=== PATIENT | female | born 1990 | race Two or more races ===

== ENCOUNTER 2025-09-22 12:34 | Observation (INO) ==
[2025-09-22] MEDS ORDERED: ONDANSETRON INJ 2 MG/ML 2 ML VIAL IV STA (12:42)
[2025-09-22] MEDS ORDERED: SODIUM CHLORIDE 0.9% 100 ML IV PRN ×2 (12:54→13:40)
[2025-09-22] MEDS: PIPERACILLIN/TAZOBACTAM 4.5 GM/100 ML BAG IV ONE (13:06)
[2025-09-22] MEDS: SODIUM CHLORIDE 0.9% 2,000 ML IV SCH (13:06)
[2025-09-22 13:11] LABS: Hematocrit (blood only) 23.4 % (37.0-47.0); Hemoglobin 7.8 g/dL (12.0-16.0); Immature Granulocytes # (auto) 0.42 K/uL (0.01-0.20); Immature Granulocytes % (auto) 2.0 %; Mean Corpuscular Hemoglobin 30.1 pg (25.0-34.0); Mean Corpuscular Volume 90.3 fL (80.0-100.0); Platelet Count 335 K/uL (130-400); RDW Standard Deviation 42.4 fL (36.4-46.3); Red Blood Count 2.59 M/uL (4.20-5.40); White Blood Count 20.49 K/ul (4.8-10.8)
--- NOTE | 2025-09-22 13:13 | Emergency Department Note ---
Impression & Plan Ruptured ectopic , Symptomatic anemia, Elevated lactic acid level, Hemoperitoneum ED Provider Note NAME: THUAN MCCULLOUGH AGE: 35 SEX: F : 1990 ARRIVES VIA: Ambulance INFORMANT: Patient, ED PROVIDER(S): Emre Terrell MD CHIEF COMPLAINT: Hypotension, vomiting, abdominal pain MEDICAL DECISION MAKING: Patient presents with the above. Little prior care known but the patient did take mifepristone earlier today and subsequently developed significant abdominal pain and dizziness. Given these concerns 2 large-bore IVs were placed IV fluids initiated and [id number] was also ordered. I was concerned about the possibility of a ruptured ectopic . I did call WASHROOM ATTENDANT Dr. Granda who stated that she would be down to see the patient. I will did speak with ultrasound to have a portable taken inside the room as the patient was not stable for transport outside of the department. Patient's [id number] hemoglobin was 7. I did request an order 2 units of O- to be given emergently as the patient was tachycardic and hypotensive. I did perform a bedside ultrasound which showed concern for free fluid within the abdomen. I did show this to Dr. Granda who was at the bedside. Formal ultrasound confirmed ruptured ectopic . Patient did show clinical improvement after being administered via the rapid infuser 2 units of PRBCs. Patient's blood work shows a white count of 20. Patient was ordered sepsis protocols and ordered IV cefepime. Blood cultures Pro-Regan and lactate ordered. Hemoglobin is 7.8. Patient's kidney function unremarkable. Bicarb of 16 with a gap of 14. Initial lactate of 10. Calcium low at 7.3. Procalcitonin is not elevated. Patient was subsequently taken to the OR with Dr. Granda. Critical Care: I have personally spent 40 minutes of critical care time in direct management of this patient. This includes bedside care, interpretation of diagnostic studies, and testing, discussion with consultants, patient, and family members, and other require inpatient management activities. This 40 minutes is in excess of all separately billable procedures. Procedures: Limited Point of Care FAST Ultrasound performed by me: Indication: Hypotension, tachycardia, concern for ruptured ectopic Findings: Limited abdominal ultrasound revealed free fluid within Morrisons pouch, splenorenal space, and the pouch of Charlie. Discussion w/ other healthcare providers: Dr. Granda WASHROOM ATTENDANT [facility] Prior /Outside records reviewed: None Differential diagnosis: Etiologies such as dysfunctional uterine bleeding, uterine fibroid, threatened , miscarriage, ectopic , GI bleeding, hyperemesis gravidarum, endometrial polyps, coagulopathy, trauma, infection, as well as others were entertained. Diagnostics, as interpreted by me: ECG: Sinus tachycardia, rate of 122, normal QRS, normal axis no ST elevations. Cardiac monitoring: An order was placed for continuous cardiac monitoring. The monitor shows a rate of 125 with tachycardic and regular rhythm. Patient was placed on pulse oximetry Medical decision rules: None Imaging studies: I informally interpreted the patient's ultrasound to show concern for free fluid in the abdomen with formal report to follow. HPI: Patient presents from home due to concern for feeling unwell with associated dizziness and vomiting. Reportedly did take medications after telehealth visit for medication induced approximately 7 weeks. No prior care and the patient has not had a prior documented IUP. Patient reportedly was feeling unwell in the mid morning was seen by her boyfriend who was concerned given how ill she looked to call 911. EMS arrived and the patient was reportedly hypotensive with systolics in the 50s. They did give 2 epis prior to arrival BSG was 250 and the patient was given Zofran. Patient denies any blood thinner use. She denies any vomiting and denies any current vaginal bleeding. PAST MEDICAL HISTORY: See Below PAST SURGICAL HISTORY: See Below SOCIAL HISTORY: See Below HOME MEDICATIONS: See Below ALLERGIES: See Below VITALS: See Below PHYSICAL EXAMINATION: GENERAL: Severe distress, ill in appearance. EYE EXAM: Normal conjunctiva. PERRL, no anisocoria and EOM's grossly intact w/o pain. OROPHARYNX: Dry mucus membranes, grossly normal dentition. NECK: Trachea midline, no stridor. LUNGS: Clear to auscultation. Normal chest wall mechanics. HEART: Tachycardic and regular, no MRG. ABDOMEN: Diffuse abdominal pain BACK: No CVA TTP. SKIN: No rashes and no bruising. UPPER EXTREMITIES: Upper extremities are grossly normal. LOWER EXTREMITIES: Grossly normal, no edema. NEURO EXAM: Opens eyes to voice follows basic commands. Moves all 4 extremities. Past Med/Surg History Problem List (Updated 09/22/25 @ 16:11 by Emre Terrell MD) Hemoperitoneum (Acute) Elevated lactic acid level (Acute) Symptomatic anemia (Acute) Ruptured ectopic (Acute) Ectopic Medical History No known health problems Surgical History No history of previous surgery Social History Smoking Status: Never smoker Preferred Language: Nepali Feels Safe at Home: Yes Allergies Allergies Allergy/AdvReac Type Severity Reaction Status Date / Time No Known Drug Allergies Allergy Unknown Verified 09/22/25 13:33 Home Meds Home Medications Medication Instructions Recorded Confirmed No Known Home Medications 09/22/25 09/22/25 Results & Data (ED) Vital Signs Vital Signs - 24 hr 09/22/25 12:28 09/22/25 12:37 09/22/25 12:37 Temperature 36.6 C 35.1 C L Temperature Source Oral Rectal Pulse Rate 120 H Pulse Rate [Apical] 124 H Pulse Rate [Right Finger] Pulse Rhythm [Apical] Pulse Rhythm [Right Finger] Pulse Strength [Right Finger] Respiratory Rate 18 23 Respiratory Effort / Characteristics Respiratory Depth Respiratory Pattern Blood Pressure 96/85 L Blood Pressure [Left Arm] Blood Pressure Mean 88 Blood Pressure Mean [Left Arm] Blood Pressure Position [Left Arm] Pulse Oximetry 100 94 Oxygen Delivery Method Room Air Oxygen Flow Rate Sepsis Recent Fever Within 48 Hours No Sepsis New/Unexplained Change in Mental Status N/A Sepsis Action Taken by Nursing Physician Notified 09/22/25 12:42 09/22/25 12:53 09/22/25 13:09 Temperature 35.1 C L Temperature Source Rectal Pulse Rate 118 H 120 H Pulse Rate [Apical] Pulse Rate [Right Finger] Pulse Rhythm [Apical] Pulse Rhythm [Right Finger] Pulse Strength [Right Finger] Respiratory Rate 16 Respiratory Effort / Characteristics Respiratory Depth Respiratory Pattern Blood Pressure 142/48 H Blood Pressure [Left Arm] Blood Pressure Mean 79 Blood Pressure Mean [Left Arm] Blood Pressure Position [Left Arm] Pulse Oximetry 98 100 Oxygen Delivery Method Oxygen Flow Rate Sepsis Recent Fever Within 48 Hours Sepsis New/Unexplained Change in Mental Status Sepsis Action Taken by Nursing 09/22/25 13:14 09/22/25 13:27 09/22/25 14:03 Temperature 36.2 C L Temperature Source Axillary Pulse Rate 124 H Pulse Rate [Apical] Pulse Rate [Right Finger] 130 H Pulse Rhythm [Apical] Pulse Rhythm [Right Finger] Regular Pulse Strength [Right Finger] Normal Respiratory Rate 41 H 40 H 18 Respiratory Effort / Characteristics SOB on Exertion Respiratory Depth Shallow Respiratory Pattern Tachypnea Blood Pressure 106/59 L Blood Pressure [Left Arm] 115/70 Blood Pressure Mean 74 Blood Pressure Mean [Left Arm] 85 Blood Pressure Position [Left Arm] Lying Pulse Oximetry 100 100 Oxygen Delivery Method Room Air Oxygen Flow Rate Sepsis Recent Fever Within 48 Hours Sepsis New/Unexplained Change in Mental Status Sepsis Action Taken by Nursing 09/22/25 15:05 09/22/25 15:15 09/22/25 15:25 Temperature 36.1 C L Temperature Source Temporal Artery Scan Pulse Rate Pulse Rate [Apical] 87 91 H 89 Pulse Rate [Right Finger] Pulse Rhythm [Apical] Regular Regular Regular Pulse Rhythm [Right Finger] Pulse Strength [Right Finger] Respiratory Rate 15 15 18 Respiratory Effort / Characteristics Non-Labored Spontaneous Non-Labored Spontaneous Non-Labored Spontaneous Respiratory Depth Normal Normal Normal Respiratory Pattern Regular Regular Regular Blood Pressure Blood Pressure [Left Arm] 121/78 125/90 134/89 Blood Pressure Mean Blood Pressure Mean [Left Arm] 92 101 104 Blood Pressure Position [Left Arm] Semi-fowlers Semi-fowlers Semi-fowlers Pulse Oximetry 100 100 100 Oxygen Delivery Method Oxymask Oxymask Oxymask Oxygen Flow Rate 5 5 5 Sepsis Recent Fever Within 48 Hours Sepsis New/Unexplained Change in Mental Status Sepsis Action Taken by Nursing 09/22/25 15:35 09/22/25 15:45 09/22/25 15:55 Temperature 36.5 C Temperature Source Temporal Artery Scan Pulse Rate Pulse Rate [Apical] 92 H 88 87 Pulse Rate [Right Finger] Pulse Rhythm [Apical] Regular Regular Regular Pulse Rhythm [Right Finger] Pulse Strength [Right Finger] Respiratory Rate 17 16 18 Respiratory Effort / Characteristics Non-Labored Spontaneous Non-Labored Spontaneous Non-Labored Spontaneous Respiratory Depth Normal Normal Normal Respiratory Pattern Regular Regular Regular Blood Pressure Blood Pressure [Left Arm] 127/95 121/74 114/93 Blood Pressure Mean Blood Pressure Mean [Left Arm] 105 89 100 Blood Pressure Position [Left Arm] Semi-fowlers Semi-fowlers Semi-fowlers Pulse Oximetry 100 100 100 Oxygen Delivery Method Oxymask Oxymask Room Air Oxygen Flow Rate 5 5 Sepsis Recent Fever Within 48 Hours Sepsis New/Unexplained Change in Mental Status Sepsis Action Taken by Care Home Medications Current Medication List: was personally reviewed by me Laboratory Data Attestation: I reviewed the patient's lab results. 09/22/25 12:42 09/22/25 12:42 Lab Results 09/22/25 09/22/25 09/22/25 Range/Units 12:42 12:45 13:01 WBC 20.49 H (4.8-10.8) K/ul RBC 2.59 L (4.20-5.40) M/uL Hgb 7.8 L (12.0-16.0) g/dL POC Hgb 7.5 L (12.0-16.0) g/dl Hct 23.4 L (37.0-47.0) % POC Hct 22 L (37-47) % MCV 90.3 (80.0-100.0) fL MCH 30.1 (25.0-34.0) pg MCHC 33.3 (32.0-36.0) g/dL RDW Std Deviation 42.4 (36.4-46.3) fL RDW Coeff of [place] 12.9 (11.5-14.5) % Plt Count 335 (130-400) K/uL MPV 9.5 (9.4-12.4) fL Immature Gran % (Auto) 2.0 % Neut % (Auto) 71.2 % Lymph % (Auto) 21.2 % [place] % (Auto) 5.1 % Eos % (Auto) 0.3 % Baso % (Auto) 0.2 % Neut # (Auto) 14.57 H (1.40-6.50) K/uL Lymph # (Auto) 4.34 H (1.20-3.40) K/uL [place] # (Auto) 1.04 H (0.11-0.59) K/uL Eos # (Auto) 0.07 (0.00-0.50) K/uL Baso # (Auto) 0.05 (0.00-0.20) K/uL Immature Gran # (Auto) 0.42 H (0.01-0.20) K/uL Echinocytes 1+ POC Sodium 139 (135-144) mmol/L Sodium 139 (136-145) mmol/L POC Potassium 3.5 (3.3-5.0) mmol/L Potassium 3.4 L (3.5-5.1) mmol/L POC Chloride 106 (101-112) mmol/L Chloride 109 H (98-107) mmol/L Carbon Dioxide 16 L (21-32) mmol/L POC Total CO2 15 L (24-31) mmol/L Anion Gap 14 H (3-11) POC Anion Gap 22.0 (16-25) mmol/L POC BUN 10 (7-18) mg/dl BUN 11 (6-23) mg/dl Creatinine 0.91 (0.6-1.2) mg/dl POC Creatinine 0.9 (0.6-1.3) mg/dl Est Cr Clr Drug Dosing 68.3 ml/min eGFR 83.33 BUN/Creatinine Ratio 12.1 (10-20) Glucose 275 H (70-99(Fasting)) mg/dl POC Glucose (other) 251 H (70-99) mg/dl Lactate 10.1 H* (0.4-2.0) mmol/L Calcium 7.3 L (8.6-10.3) mg/dl POC Ioniz Calcium Kaye 1.02 L (1.12-1.32) mmol/l Total Bilirubin 0.2 (0.2-1.0) mg/dl AST 10 L (13-39) U/L ALT 8 (7-52) U/L Alkaline Phosphatase 30 L (34-104) U/L Troponin I High Sens 5.7 (0-14) pg/ml Total Protein 4.8 L (6.0-8.3) gm/dl Albumin 2.8 L (3.4-5.0) gm/dl Globulin 2.0 L (2.5-4.0) gm/dl Albumin/Globulin Ratio 1.4 (0.9-2) Procalcitonin < 0.02 (0-0.5) ng/ml Blood Type A Positive Blood Type Recheck Antibody Screen NEGATIVE Crossmatch See Detail 09/22/25 09/22/25 Range/Units 13:02 15:30 WBC (4.8-10.8) K/ul RBC (4.20-5.40) M/uL Hgb Cancelled (12.0-16.0) g/dL POC Hgb (12.0-16.0) g/dl Hct Cancelled (37.0-47.0) % POC Hct (37-47) % MCV (80.0-100.0) fL MCH (25.0-34.0) pg MCHC (32.0-36.0) g/dL RDW Std Deviation (36.4-46.3) fL RDW Coeff of [place] (11.5-14.5) % Plt Count (130-400) K/uL MPV (9.4-12.4) fL Immature Gran % (Auto) % Neut % (Auto) % Lymph % (Auto) % [place] % (Auto) % Eos % (Auto) % Baso % (Auto) % Neut # (Auto) (1.40-6.50) K/uL Lymph # (Auto) (1.20-3.40) K/uL [place] # (Auto) (0.11-0.59) K/uL Eos # (Auto) (0.00-0.50) K/uL Baso # (Auto) (0.00-0.20) K/uL Immature Gran # (Auto) (0.01-0.20) K/uL Echinocytes POC Sodium (135-144) mmol/L Sodium (136-145) mmol/L POC Potassium (3.3-5.0) mmol/L Potassium (3.5-5.1) mmol/L POC Chloride (101-112) mmol/L Chloride (98-107) mmol/L Carbon Dioxide (21-32) mmol/L POC Total CO2 (24-31) mmol/L Anion Gap (3-11) POC Anion Gap (16-25) mmol/L POC BUN (7-18) mg/dl BUN (6-23) mg/dl Creatinine (0.6-1.2) mg/dl POC Creatinine (0.6-1.3) mg/dl Est Cr Clr Drug Dosing ml/min eGFR BUN/Creatinine Ratio (10-20) Glucose (70-99(Fasting)) mg/dl POC Glucose (other) (70-99) mg/dl Lactate (0.4-2.0) mmol/L Calcium (8.6-10.3) mg/dl POC Ioniz Calcium Kaye (1.12-1.32) mmol/l Total Bilirubin (0.2-1.0) mg/dl AST (13-39) U/L ALT (7-52) U/L Alkaline Phosphatase (34-104) U/L Troponin I High Sens (0-14) pg/ml Total Protein (6.0-8.3) gm/dl Albumin (3.4-5.0) gm/dl Globulin (2.5-4.0) gm/dl Albumin/Globulin Ratio (0.9-2) Procalcitonin (0-0.5) ng/ml Blood Type Blood Type Recheck A Positive Antibody Screen Crossmatch Administered Medications Discontinued Medications Bupivacaine HCl (Bupivacaine 0.5 % 5 Mg/1 Ml Mpf 30ml Vial) Confirm Administered Dose 30 ml .ROUTE .STK-MED ONE Stop: 09/22/25 13:40 Last Admin: 09/22/25 14:47 Dose: 24 ml Documented By: [id number] Sodium Chloride (Nss) 2,000 mls @ 999 mls/hr IV .Q2H1M ANGELY Stop: 09/22/25 14:45 Last Admin: 09/22/25 13:06 Dose: 999 mls/hr Documented By: MATT Piperacillin Sod/Tazobactam Sod (Zosyn) 4.5 gm in 100 mls @ 200 mls/hr IV NOW ONE; Protocol Stop: 09/22/25 13:23 Last Admin: 09/22/25 13:06 Dose: 200 mls/hr Documented By: MATT Imaging Data Radiologist's Impression: Pelvic/Transvag US 09/22/25 12:42 US ectopic HISTORY: 35 years-old Female hypotensive, tachy acute pelvic pain with possible ectopic gestation COMPARISON: None TECHNIQUE: Multiple real-time images of the deep pelvic structures were obtained transabdominally assessing grayscale appearance, color and spectral flow FINDINGS: Anteflexed uterus measures 90.8 x 3.5 x 2.9 cm. Endometrium is 1.2 cm in thickness. Possible hemorrhagic debris within the endometrial cavity. Nonvisualization of the right ovary. The left ovary appears to measure approximately 4.8 x 1.8 x 3.8 cm. There is a complex structure within the left adnexum overall measuring 8.0 x 5.3 x 6.3 cm with 2 central cystic foci conglomerate measuring 3.2 x 1.4 x 3.4 cm, possibly representing gestational sac versus gestational sacs. Complex fluid within the pelvis extends into the upper abdomen. Blood flow noted within the left adnexum. Normal arterial and venous waveforms in the left ovary are difficult to evaluate secondary to the left adnexal lesion. IMPRESSION: 1. Probable ectopic gestation within the left adnexum with adjacent complex fluid within the abdomen and pelvis suggestive of hemoperitoneum. 2. No intrauterine gestation identified. 3. Possible blood products within the endometrial cavity. Findings were discussed with Dr. Emre Terrell at time of dictation. ACT 112: Positive. There are findings on this exam that require communication between the performing entity and the patient following Patient Test Result Information Act ([place] Act 112) guidelines. The above report was generated using voice recognition software. It may contain grammatical, syntax or spelling errors. Electronically signed by: Felipe Birmingham M.D. 09/22/2025 1:46 PM Discharge Plan Visit Data Chief Complaint: Hypotension Stated Complaint: AMS, HYPOTENSION, VOMITING ED Provider: Emre Terrell Discharge Problem: Ruptured ectopic , Symptomatic anemia, Elevated lactic acid level, Hemoperitoneum Patient Disposition: Admitted As Inpatient Condition: Critical Discharge Instructions Interventions: ED Discharge Assessment Last Done: 09/22/25 14:03
[2025-09-22] MEDS ORDERED: DEXAMETHASONE SOD INJ 4 MG/ML VIAL ONE (13:20)
[2025-09-22] MEDS ORDERED: ONDANSETRON INJ 2 MG/ML 2 ML VIAL ONE (13:20)
[2025-09-22] MEDS ORDERED: LIDOCAINE 2% 2 ML VIAL/AMP(20MG/ML) INFIL ONE (13:20)
[2025-09-22] MEDS ORDERED: PROPOFOL IV EMULSION 10 MG/ML 20 ML VIAL IV ONE (13:20)
[2025-09-22] MEDS ORDERED: MIDAZOLAM HCL 1 MG/ML 2ML VIAL ONE (13:21)
[2025-09-22] MEDS ORDERED: LARYING-O-JET KIT (LTA) ONE (13:21)
[2025-09-22] MEDS ORDERED: ROCURONIUM BROMIDE 10 MG/ML 5 ML VIAL IV ONE (13:21)
[2025-09-22 13:25] LABS: Alanine Aminotransferase 8.0 U/L (7-52); Albumin Globulin Ratio 1.4 (0.9-2); Albumin Level 2.8 gm/dl (3.4-5.0); Alkaline Phosphatase 30.0 U/L (34-104); Anion Gap 14.0 (3-11); Bilirubin,Total 0.2 mg/dl (0.2-1.0); Blood Urea Nitrogen 11.0 mg/dl (6-23); Calcium 7.3 mg/dl (8.6-10.3); Carbon Dioxide 16.0 mmol/L (21-32); Chloride 109.0 mmol/L (98-107); Creatinine Clr Calc Pharmacy 68.3 ml/min; Globulin 2.0 gm/dl (2.5-4.0); Glucose 275.0 mg/dl (70-99(Fasting)); Potassium 3.4 mmol/L (3.5-5.1); Sodium 139.0 mmol/L (136-145); Total Protein 4.8 gm/dl (6.0-8.3)
--- NOTE | 2025-09-22 13:28 | OB/GYN Consultation ---
Date of Consultation September 22, 2025 Assessment & Plan (1) Ectopic : Plan Pt is a 35yo female who presents with concern for ruptured ectopic . S/P 2 units pRBCs Proceed to OR for dx laparoscopy, removal ectopic , possible unilateral salpingoophorectomy, possible laparotomy Consents signed History of Present Illness History of Present Illness Patient is a 35yo female who arrived to ER by EMS. Accompanied by boyfriend who helped provide history below. Took mifepristone from telehealth visit -took this morning, supposed to be around 7 weeks . Shortly after had symptoms of dizziness. Found to be hypotensive in ER. No vaginal bleeding noted. Did not have work up or ultrasound prior to taking mifepristone. Denies surgical history. ER evaluation showing fluid and blood in abdomen, with gestational sac seen outside of uterus; findings concerning for ruptured ectopic . Allergies Allergy/AdvReac Type Severity Reaction Status Date / Time No Known Drug Allergies Allergy Unknown Verified 09/22/25 13:33 Patient History Social History Smoking Status: Never smoker Preferred Language: Hungarian Feels Safe at Home: Yes Review of Systems Review of Systems: All systems reviewed & are unremarkable except as noted in HPI & below Physical Exam Constitutional: + acute distress and + ill appearing Respiratory: + labored breathing Cardiovascular: Rate/Rhythm: + tachycardic Gastrointestinal (Abdomen): Inspection/Auscultation: + abdomen distended blood in abdomen on FAST exam by ER doctor Psychiatric: Orientation: oriented to person and oriented to place Eye Contact: + poor eye contact Genitourinary: normal external appearance Results & Data Vital Signs (Past 12 Hours) Vital Signs Temp Pulse Pulse Resp BP Pulse Ox O2 Del Method 09/22/25 13:14 124 H 41 H 106/59 L 100 09/22/25 13:09 35.1 C L 120 H 16 142/48 H 100 09/22/25 12:53 118 H 09/22/25 12:42 98 09/22/25 12:37 35.1 C L 124 H 23 94 09/22/25 12:37 Room Air 09/22/25 12:28 36.6 C 120 H 18 96/85 L 100 PG Care Time/CCT Total # of Minutes Spent Total Time Spent with Patient: Total time spent is greater than 50% in coordination of care (as documented) at patient's floor/unit and/or counseling patient: Coding Level of Care Code 04877 OFFICE CONSULT LVL Diagnoses Ectopic O00.90
[2025-09-22] MEDS ORDERED: SUCCINYLCHOLINE CHLORIDE 20 MG/ML 10 ML VIAL IV ONE (13:29)
[2025-09-22] MEDS ORDERED: ALBUMIN HUMAN 5% 12.5 GM/250 ML VIAL IV ONE (13:33)
[2025-09-22] MEDS ORDERED: PROMETHAZINE HCL 6.25 MG in SODIUM CHLORIDE 0.9% 50 ML IV PRN (13:43)
[2025-09-22] MEDS ORDERED: ONDANSETRON INJ 2 MG/ML 2 ML VIAL IV PRN ×2 (13:43→14:56)
[2025-09-22] MEDS ORDERED: ATROPINE SULFATE 0.1 MG/ML 10ML SYR IV PRN (13:43)
--- NOTE | 2025-09-22 13:43 | Anesthesiology Consultation ---
Date of Service September 22, 2025 Assessment & Plan Chart Review Chart Review: Acceptable Risk for Surgery and Patient NOT seen in Pre Admission Testing Consults Requested none ASA [id number] Proposed Anesthesia Anesthesia Type: General Risk / Benefits Reviewed With: PT / POA / Parent / Guardian, Accepts Plan and Informed Consent Obtained History Surgery Operation Date: 09/22/25 10:25 Proposed Procedures p Diagnostic Laparoscopy, Removal of Ectopic , Possible Unilateral Salpingectomy - Paola Granda MD Height/Weight Height: 5 ft 3 in Weight: 51.1 kg Allergies Allergy/AdvReac Type Severity Reaction Status Date / Time No Known Drug Allergies Allergy Unknown Verified 09/22/25 13:33 Medications Home Medications Medication Instructions Recorded Confirmed Last Taken No Known Home Medications 09/22/25 09/22/25 Unknown Active Medications Generic Name Dose Route Start Last Admin Trade Name Freq PRN Reason Stop Dose Admin Sodium Chloride 2,000 mls @ 999 mls/hr 09/22/25 12:45 09/22/25 13:06 Nss IV 09/22/25 14:45 999 mls/hr .Q2H1M ANGELY Administration NPO Date Last Intake of Fluids: 09/22/25 Time Last Intake of Fluids: 07:00 Date Last Intake of Solids: 09/22/25 Time Last Intake of Solids: 07:00 Past Medical History Medical History (Updated 09/22/25 @ 13:35 by Amparo Holt RN) No known health problems Exercise / Class Metabolic Activity II 4-5 Yardwork/Stairs/Walk up hill Past Surgical History Surgical History (Updated 09/22/25 @ 13:35 by Amparo Holt RN) No history of previous surgery Past Anesthesia History No Hx of Anesthesia Complications and No Family Hx of Anesthesia Complications History of PONV No Hx of PONV and No Hx of Motion Sickness Social History Smoking Status: Never smoker Physical Exam Vital Signs Last Vital Signs Temp 36.2 C L 09/22/25 13:27 Pulse 130 H 09/22/25 13:27 Resp 40 H 09/22/25 13:27 BP 115/70 09/22/25 13:27 Pulse Ox 100 09/22/25 13:27 O2 Del Method Room Air 09/22/25 13:27 Constitutional + acute distress (abdominal pain) ENMT Mouth: no dentition abnormality Thyromental Distance: > or= 3.5 Finger Breadths Mallampati Class: II Neck normal visual inspection Respiratory normal respiratory effort and + tachypneic Auscultation: lungs clear to auscultation bilaterally Cardiovascular Rate/Rhythm: regular rhythm and + tachycardic Psychiatric Orientation: alert Testing Laboratory Results 09/22/25 12:42 09/22/25 12:42 Blood Type A Positive 09/22/25 12:42 09/22/25 12:45 POC Glucose (other) 251 H
--- NOTE | 2025-09-22 13:47 | Ultrasound Report ---
US ectopic HISTORY: 35 years-old Female hypotensive, tachy acute pelvic pain with possible ectopic gestation COMPARISON: None TECHNIQUE: Multiple real-time images of the deep pelvic structures were obtained transabdominally ass essing grayscale appearance, color and spectral flow FINDINGS: Anteflexed uterus measures 90.8 x 3.5 x 2.9 cm. Endometrium is 1.2 cm in thickness. Possible hemorrha gic debris within the endometrial cavity. Nonvisualization of the right ovary. The left ovary appears to measure approximately 4.8 x 1.8 x 3.8 cm. There is a complex structure within the left adnexum overall measuring 8.0 x 5.3 x 6.3 cm with 2 central cystic foci conglomerate measuring 3.2 x 1.4 x 3.4 cm, possibly representing gestational sac versus gestational sacs. Complex fluid within the pelvis extends into the upper abdomen. Blood flow n oted within the left adnexum. Normal arterial and venous waveforms in the left ovary are difficult to evaluate secondary to the left adnexal lesion. IMPRESSION: 1. Probable ectopic gestation within the left adnexum with adjacent complex fluid within the abdomen and pelvis suggestive of hemoperitoneum. 2. No intrauterine gestation identified. 3. Possible blood products within the endometrial cavity. Findings were discussed with Dr. Emre Terrell at time of dictation. ACT 112: Positive. There are findings on this exam that require communication between the performing entity and the patient following Patient Test Result Information Act ([place] Act 112) guidelines. The above report was generated using voice recognition software. It may contain grammatical, syntax o r spelling errors. Electronically signed by: Felipe Birmingham M.D. 09/22/2025 1:46 PM
[2025-09-22] MEDS ORDERED: PHENYLEPHRINE 100MCG/ML 5ML SYR ONE (14:24)
[2025-09-22] MEDS ORDERED: PHENYLEPHRINE HCL 10 MG/ML VIAL ONE (14:24)
[2025-09-22] MEDS ORDERED: SUGAMMADEX SODIUM 200 MG/2 ML VIAL IV ONE (14:39)
[2025-09-22] MEDS: BUPIVACAINE 0.5 % 5 MG/1 ML MPF 30ML VIAL ONE (14:47)
[2025-09-22] MEDS ORDERED: HYDROmorphone INJ 2 MG/ML SYR/VIAL ONE (14:54)
--- NOTE | 2025-09-22 15:03 | Operative Report ---
Post Operative Report Pre & Post Diagnosis Operation Date: 09/22/25 10:25 Pre-Op Diagnosis: Ruptured ectopic Post-Op Diagnosis: Ruptured ectopic I identified the patient and participated in the time-out.: Yes Procedure Operation Date: 09/22/25 10:25 Actual Procedures p Diagnostic Laparoscopy, Removal of Ectopic , Left Salpingectomy- Paola Granda MD Surgeon Paola Granda MD Candy Puller None Quantitative Blood Loss (QBL) 2300cc Findings Consistent with Post-Op Diagnosis Hemoperitoneum with about 2L of blood in abdomen; ectopic within left fallopian tube - ruptured with ongoing bleeding; normal appearing left ovary & right fallopian tube and ovary, normal uterus. Normal vagina and cervix. Fluids 2200 LR Specimens Left fallopian tube with ectopic Drains Carver 600 cc pink tinged urine Anesthesia Type General Complications none Disposition Accompanied Patient To Recovery: Yes Disposition: Recovery Room Indications Pt is a 35yo female with findings suspicous for ruptured ectopic with blood/fluid in abdomen on ultrasound, distended abdomen, hypotension, tachypnea, recent mifepristone use in the setting of early of unknown location; she was consented for surgery prior to going to the OR. Description of Procedure The patient was taken to the operating room. She was placed in dorsal supine position. General endotracheal anesthesia was obtained without difficulty. Her legs were placed in stirrups with pressure points padded. The abdomen, perineum and vagina prepped and draped in normal sterile fashion. An OR time-out was performed confirming the patient and the procedure. Carver catheter was placed. An acorn uterine manipulator was placed in the vagina. An umbilical stab incision was made with a scalpel and a 5 mm trocar was placed under direct visualization and there was significant hemoperitoneum upon entry. The patient was placed in steep Trendelenburg position. A 12mm port was placed on left side first to accomodate the larger suction device and this was used to suction a significant amount of the hemoperitoneum; following this, a 5mm trocar was placed on the right lower abdomen. The above listed findings were noted. The left dilated fallopian tube with ruptured ectopic was identified and followed out to its fimbriated end. The ligasure device was used to cauterize and divide the fallopian tube from the ovary to the level of the cornua. This was removed through the 12mm port in a bag and handed off for pathology. Salpingectomy site was hemostatic. Additional suction of remaining hemoperitoneum was performed at this time. Procedure was then terminated. Abdomen was desufflated. Trocars were removed. The 12mm port site fascial layer was reapproximated with vicryl suture. The skin edges of all the incision sites were reapproximated using 4-0 Monocryl and Dermabond. Gerton was removed and tenaculum sites were hemostatic. Carver catheter was left in place. The patient tolerated the procedure well. Sponge, needle and instrument counts were correct x2 at the completion of the procedure. I attest to the content of the Intraoperative Record and any orders documented therein. Any exceptions are noted below. 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
[2025-09-22 16:58] LABS: Hematocrit (blood only) 38.5 % (37.0-47.0); Hemoglobin 13.6 g/dL (12.0-16.0)
--- NOTE | 2025-09-22 17:48 | Anesthesiology Progress Note ---
Date of Service September 22, 2025 Anesthesia Post Procedure Vital Signs Vital Signs: Temp Pulse Pulse Pulse Resp BP BP 09/22/25 17:30 93 H 23 114/67 09/22/25 17:00 88 24 121/70 09/22/25 16:45 86 22 110/82 09/22/25 16:30 36.8 C 88 16 110/90 09/22/25 16:15 89 18 110/81 09/22/25 16:05 90 18 120/71 09/22/25 15:55 87 18 114/93 09/22/25 15:45 36.5 C 88 16 121/74 09/22/25 15:35 92 H 17 127/95 09/22/25 15:25 89 18 134/89 09/22/25 15:15 91 H 15 125/90 09/22/25 15:05 36.1 C L 87 15 121/78 09/22/25 14:03 18 09/22/25 13:27 36.2 C L 130 H 40 H 115/70 09/22/25 13:14 124 H 41 H 106/59 L 09/22/25 13:09 35.1 C L 120 H 16 142/48 H 09/22/25 12:53 118 H 09/22/25 12:42 09/22/25 12:37 35.1 C L 124 H 23 09/22/25 12:37 09/22/25 12:28 36.6 C 120 H 18 96/85 L Pulse Ox O2 Del Method O2 Flow Rate 09/22/25 17:30 100 Room Air 09/22/25 17:00 100 Room Air 09/22/25 16:45 100 Room Air 09/22/25 16:30 100 Room Air 09/22/25 16:15 100 Room Air 09/22/25 16:05 100 Room Air 09/22/25 15:55 100 Room Air 09/22/25 15:45 100 Oxymask 5 09/22/25 15:35 100 Oxymask 5 09/22/25 15:25 100 Oxymask 5 09/22/25 15:15 100 Oxymask 5 09/22/25 15:05 100 Oxymask 5 09/22/25 14:03 09/22/25 13:27 100 Room Air 09/22/25 13:14 100 09/22/25 13:09 100 12/16/25 12:53 09/22/25 12:42 98 09/22/25 12:37 94 09/22/25 12:37 Room Air 09/22/25 12:28 100 Pain Intensity Abdomen: Pain Intensity: 5 Transfer of Care Handoff Completed per policy Notes Mental Status: alert / awake / arousable and participated in evaluation Patient Amnestic to Procedure: Yes Nausea / Vomiting: adequately controlled Pain: adequately controlled Airway Patency, RR, SpO2: stable & adequate BP & HR: stable & adequate Hydration State: stable & adequate Anesthetic Complications: no major complications apparent and Pt Satisfied with anesthetic care
[2025-09-22] MEDS: ACETAMINOPHEN 325 MG TAB PO PRN (18:53)
[2025-09-22] MEDS: IBUPROFEN 600 MG TAB PO PRN (18:53)
[2025-09-22] MEDS: SIMETHICONE 80 MG CHEW PO PRN (19:25)
--- NOTE | 2025-09-22 22:44 | Electrocardiogram Report ---
Test Reason : Blood Pressure : */* mmHG Vent. Rate : 122 BPM Atrial Rate : 122 BPM P-R Int : 90 ms QRS Dur : 68 ms QT Int : 342 ms P-R-T Axes : 73 67 58 degrees QTcB Int : 487 ms Poor data quality, interpretation may be adversely affected Sinus tachycardia with short MN Nonspecific ST abnormality Prolonged QT Abnormal ECG No previous ECGs available Confirmed by Jatinder Mckay ([id number]) on 09/22/2025 10:43:41 PM Referred By: Paola Granda Confirmed By: Jatinder Mckay
--- NOTE | 2025-09-23 06:31 | Obstetrical Progress Note ---
Date of Service September 23, 2025 Results & Data Vital Signs (Past 12 Hours) Vital Signs Temp Pulse Resp BP Pulse Ox O2 Del Method 09/23/25 03:30 36.6 C 84 16 108/67 98 Room Air 09/22/25 22:30 36.9 C 92 H 18 117/69 98 Room Air 09/22/25 20:00 36.9 C 90 16 110/66 99 Room Air 09/22/25 19:15 36.4 C L 92 H 16 118/65 100 Room Air 09/22/25 19:15 36.4 C L 92 H 16 118/65 99 Room Air
--- NOTE | 2025-09-23 06:32 | Obstetrical Progress Note ---
Date of Service September 23, 2025 Assessment & Plan (1) Ruptured ectopic : Plan Patient is POD#1 from diagnostic laparoscopy, removal of ectopic with left salpingectomy. S/P 4 units pRBCs preop and intraop - Hgb stable 10.6 this morning VS WNL Pain controlled Meeting milestones to go home Will need postop visit 2 weeks, precautions reviewed Admission and Anticipated Discharge Date Admission Date: September 22, 2025 Subjective Patient doing well this morning. Pain improved. Voiding spontaneously. Ambulating without dizziness. Passing flatus. Tolerating diet without nausea. Review of Systems Review of Systems: All systems reviewed & are unremarkable except as noted in HPI & below Physical Exam Constitutional: WD/WN, vitals as above healthy appearing Respiratory: normal respiratory effort Gastrointestinal (Abdomen): Inspection/Auscultation: abdomen not distended Percussion/Palpation: abdomen soft; abdomen nontender, no guarding and abdomen not rigid incisions clean/dry/intact Psychiatric: Orientation: alert and oriented x 3 Results & Data Vital Signs (Past 12 Hours) Vital Signs Temp Pulse Resp BP Pulse Ox O2 Del Method 09/23/25 03:30 36.6 C 84 16 108/67 98 Room Air 09/22/25 22:30 36.9 C 92 H 18 117/69 98 Room Air 09/22/25 20:00 36.9 C 90 16 110/66 99 Room Air 09/22/25 19:15 36.4 C L 92 H 16 118/65 100 Room Air 09/22/25 19:15 36.4 C L 92 H 16 118/65 99 Room Air PG Care Time/CCT Total # of Minutes Spent Total Time Spent with Patient: Total time spent is greater than 50% in coordination of care (as documented) at patient's floor/unit and/or counseling patient: Coding Level of Care Code 41296 SUB INP/OBS CARE 11/01MIN Diagnoses Ruptured ectopic O00.90
[2025-09-23 07:00] LABS: Hematocrit (blood only) 28.8 % (37.0-47.0); Hemoglobin 10.6 g/dL (12.0-16.0); Mean Corpuscular Hemoglobin 30.8 pg (25.0-34.0); Mean Corpuscular Volume 83.7 fL (80.0-100.0); RDW Standard Deviation 44.2 fL (36.4-46.3); Red Blood Count 3.44 M/uL (4.20-5.40); White Blood Count 23.85 K/ul (4.8-10.8)
[2025-09-23 07:02] LABS: Immature Granulocytes # (auto) 0.18 K/uL (0.01-0.20); Immature Granulocytes % (auto) 0.8 %; Platelet Count 160 K/uL (130-400)
[2025-09-23 08:06] VITALS: RESP 18; TEMP 98.1
--- NOTE | 2025-09-23 08:25 | Discharge Summary ---
Date of Service September 23, 2025 Admission HPI Per Admitting Provider Pt presented to the ER with findings suspicious for ruptured ectopic . She underwent subsequent surgery with diagnostic laparaoscopy, left salpingectomy with removal of ectopic. She received 4 units pRBCS. She was doing well on POD#1. Admission Exam (Per Admitting) Constitutional WD/WN, vitals as above + acute distress, + ill appearing and healthy appearing Respiratory normal respiratory effort and + labored breathing Cardiovascular Rate/Rhythm: + tachycardic Gastrointestinal (Abdomen) Inspection/Auscultation: abdomen not distended Percussion/Palpation: abdomen soft; abdomen nontender, no guarding and abdomen not rigid Psychiatric Orientation: alert, oriented x 3, oriented to person and oriented to place Eye Contact: + poor eye contact Genitourinary normal external appearance Discharge Data Consultations 09/22/25 13:37 ED Decision to Admit Stat Procedures Performed Operation Date: 09/22/25 10:25 Actual Procedures p Laparoscopic Removal of left fallopian tube and Ectopic (Not Applicable) - Paola Granda MD Hospital Course (1) Ruptured ectopic : Plan Patient is POD#1 from diagnostic laparoscopy, removal of ectopic with left salpingectomy. S/P 4 units pRBCs preop and intraop - Hgb stable 10.6 this morning VS WNL Pain controlled Meeting milestones to go home Will need postop visit 2 weeks, precautions reviewed Coding Level of Care Code 82821 IN/OBS DISCH 30 MIN/LESS Diagnoses Ruptured ectopic O00.90
[2025-09-23 11:34] VITALS: BP 131/76; PULSE 84; O2SAT 100
== END 2025-09-23 13:38 | disposition home or self-care (01) ==
LOC: EDBD → ED 12:34 → 4E1 13:28 → OR 13:28 → MERGE 14:56